=== PATIENT | female | born 2000 | race African-American/Black ===

== ENCOUNTER 2019-05-31 20:06 | Emergency (ER) | payer OTHER ==
[2019-05-31 20:26] LABS: ABS Basophils 0.1 10^3/ul (0-0.2); ABS Eosinophils 0.1 10^3/ul (0-0.6); ABS Lymphocytes 2.8 10^3/ul (1.0-4.8); ABS Monocytes 0.5 10^3/ul (0-0.8); ABS Neutrophils 5.3 10^3/ul (1.5-7.7); Eosinophil % 1.3 %; Hematocrit 33 % (35-47); Hemoglobin 11.3 g/dL (12.0-16.0); Mean Corpuscular HGB Conc 34 g/dL (31-36); Mean Corpuscular Hemoglobin 26 pg (27-31); Mean Corpuscular Volume 77 fL (80-97); Mean Platelet Volume 6.8 fL (7.4-10.4); Platelet Count 433 10^3/uL (150-450); Red Blood Count 4.33 10^6 /uL (3.70-4.87); Red Cell Distribution Width 15 % (10-15); White Blood Count 8.9 10^3/uL (3.5-10.8)
[2019-05-31 20:35] LABS: INR 1.21 (0.82-1.09)
[2019-05-31 20:43] LABS: Albumin 4.1 g/dL (3.2-5.2); Albumin/Globulin Ratio 1.2 (1-3); BUN/Creatinine Ratio 11.4 (8-20); Calcium 9.3 mg/dL (8.6-10.3); EGFR African American 112.3 (>60); EGFR Non-African American 92.8 (>60); Globulin 3.3 g/dL (2-4); Potassium 3.3 mmol/L (3.5-5.0); Total Bilirubin 0.3 mg/dL (0.2-1.0); Total Protein 7.4 g/dL (6.4-8.9)
--- NOTE | 2019-05-31 23:05 | ED ---
HPI Chest Pain - HPI Summary HPI Summary: 18-year-old female without significant past medical history presents to the emergency department today complaining of 2 out of 10 epigastric chest pain which she describes as"shock" which lasts for approximately 3 minutes which comes on randomly for which she has been experiencing for years as well as a lump on her breast. Patient denies chest pain with exertion or associated symptoms such as lightheadedness, nausea, shortness of breath, abdominal pain, arm pain, jaw pain. Patient denies family history of myocardial infarction. Patient denies smoking or use of control, recent travel, surgery. Patient is in no acute distress at this time and resting comfortable in the stretcher. Patient denies recent alcohol use or occasional drug use. Patient denies fever, vomiting or breath, pain with urination, rash, nausea, vomiting and diarrhea. - History of Current Complaint Chief Complaint: EDChestWallPain Time Seen by Provider: 05/31/19 22:51 Hx Obtained From: Patient Onset/Duration: Started Weeks Ago, Atraumatic Timing: Constant Initial Severity: Moderate Current Severity: Moderate Pain Intensity: 6 Pain Scale Used: 0-10 Numeric Chest Pain Location: Mid Sternal Chest Pain Radiates: No Character: Other: - Shocking Aggravating Factor(s): Nothing Alleviating Factor(s): Nothing Associated Signs and Symptoms: Positive: Chest Pain - Allergy/Home Medications Allergies/Adverse Reactions: Allergies Allergy/AdvReac Type Severity Reaction Status Date / Time No Known Allergies Allergy Verified 05/31/19 20:22 PMH/Surg Hx/FS Hx/Imm Hx Infectious Disease History: No Infectious Disease History: Denies: Traveled Outside the [place] in Last 30 Days Review of Systems Constitutional: Negative Eyes: Negative ENT: Negative Positive: Chest Pain. Negative: Palpitations Respiratory: Negative Gastrointestinal: Negative Genitourinary: Negative Musculoskeletal: Negative Skin: Negative Neurological/Mental Status: Negative Psychological: Normal All Other Systems Reviewed And Are Negative: Yes Physical Exam Triage Information Reviewed: Yes Vital Signs On Initial Exam: Initial Vitals Temp Pulse Resp BP Pulse Ox 99.2 F 88 16 151/95 100 05/31/19 20:15 05/31/19 20:15 05/31/19 20:15 05/31/19 20:15 05/31/19 20:15 Vital Signs Reviewed: Yes Appearance: Positive: Well-Appearing, No Pain Distress, Well-Nourished, Obese Skin: Positive: Warm, Skin Color Reflects Adequate Perfusion Eyes: Positive: EOMI, CRISTINA ENT: Positive: Hearing grossly normal Respiratory/Lung Sounds: Positive: Clear to Auscultation, Breath Sounds Present Cardiovascular: Positive: RRR, S1, S2 Abdomen Description: Positive: Nontender, Soft Bowel Sounds: Positive: Present Musculoskeletal: Positive: Strength/ROM Intact Neurological: Positive: Sensory/Motor Intact, Alert, Oriented to Person Place, Time, Normal Gait, Facial Symmetry, Speech Normal Psychiatric: Positive: Normal, Affect/Mood Appropriate AVPU Assessment: Alert Procedures - Sedation Patient Received Moderate/Deep Sedation with Procedure: No Diagnostics - Vital Signs Vital Signs Temp Pulse Resp BP Pulse Ox 05/31/19 22:10 98.7 F 65 16 149/95 100 05/31/19 20:15 99.2 F 88 16 151/95 100 - Laboratory Lab Results: Lab Results 05/31/19 05/31/19 05/31/19 Range/Units 20:18 20:18 20:18 WBC 8.9 (3.5-10.8) 10^3/uL RBC 4.33 (3.70-4.87) 10^6 /uL Hgb 11.3 L (12.0-16.0) g/dL Hct 33 L (35-47) % MCV 77 L (80-97) fL MCH 26 L (27-31) pg MCHC 34 (31-36) g/dL RDW 15 (10-15) % Plt Count 433 (150-450) 10^3/uL MPV 6.8 L (7.4-10.4) fL Neut % (Auto) 60.0 % Lymph % (Auto) 32.0 % Reynolds % (Auto) 6.1 % Eos % (Auto) 1.3 % Baso % (Auto) 0.6 % Absolute Neuts (auto) 5.3 (1.5-7.7) 10^3/ul Absolute Lymphs (auto) 2.8 (1.0-4.8) 10^3/ul Absolute Monos (auto) 0.5 (0-0.8) 10^3/ul Absolute Eos (auto) 0.1 (0-0.6) 10^3/ul Absolute Basos (auto) 0.1 (0-0.2) 10^3/ul Absolute Nucleated RBC 0.0 10^3/ul Nucleated RBC % 0.0 INR (Anticoag Therapy) 1.21 H (0.82-1.09) Sodium 137 (135-145) mmol/L Potassium 3.3 L (3.5-5.0) mmol/L Chloride 105 (101-111) mmol/L Carbon Dioxide 26 (22-32) mmol/L Anion Gap 6 (2-11) mmol/L BUN 9 (6-24) mg/dL Creatinine 0.79 (0.51-0.95) mg/dL Est GFR ( Amer) 112.3 (>60) Est GFR (Non-Af Amer) 92.8 (>60) BUN/Creatinine Ratio 11.4 (8-20) Glucose 82 (70-100) mg/dL Calcium 9.3 (8.6-10.3) mg/dL Total Bilirubin 0.30 (0.2-1.0) mg/dL AST 12 L (13-39) U/L ALT 10 (7-52) U/L Alkaline Phosphatase 77 (34-104) U/L Troponin I 0.00 (<0.03) ng/mL Total Protein 7.4 (6.4-8.9) g/dL Albumin 4.1 (3.2-5.2) g/dL Globulin 3.3 (2-4) g/dL Albumin/Globulin Ratio 1.2 (1-3) Result Diagrams: 05/31/19 20:18 05/31/19 20:18 Lab Statement: Any lab studies that have been ordered have been reviewed, and results considered in the medical decision making process. Chest Pain Course/Dx - Course Course Of Treatment: Patient was evaluated in the emergency department today for chest pain. Vitals noted and stable. EKG was done promptly which shows no evidence of STEMI. Normal sinus rhythm at a rate of 89 bpm. Normal axis, WI, QT interval. No T-wave inversions or signs of ischemia. Laboratory studies returned showing no significant abnormality with no leukocytosis, anemia, or electrolyte disturbance. Initial troponin 0.00. Serial troponins seemed unnecessary as patient has been symptomatic for years. Chest xray negative for pathology. PERC negative. HEART score: 1. It appeared patient was not experiencing any significant heart pathology at this time did not require intervention. Patient's breast mass was consistent with benign cyst. Patient discharged with outpatient follow-up. - Chest Pain Differential Diagnosis/HQI/PQRI: Acute [place], Angina, CHF, Chest Wall, Lower Respiratory Infection, Pulmonary Embolism - Diagnoses Provider Diagnoses: Chest pain, Breast mass in female Discharge ED - Sign-Out/Discharge Documenting (check all that apply): Patient Departure - Discharge Plan Condition: Stable Disposition: HOME Patient Education Materials: Chest Pain (ED), Breast Mass (ED) Referrals: Jj Cárdenas MD [Medical Doctor] - 5 Days No Primary Care Phys,NOPCP [Primary Care Provider] - Additional Instructions: You were seen in the emergency department today due to chest pain. Cardiac workup was done today including an EKG and blood work which found no evidence of acute pathology requiring intervention at this time. Although I am uncertain what is causing your symptoms cardiac origin cannot be ruled out. Please follow- up with your primary care provider or real estate legal secretary in 3 days for further evaluation and management. Please return to this emergency Department immediately if you develop any new or worsening symptoms. Please follow-up with your CASE OPERATOR for further investigation of the mass on your breast although this is considered benign. - Billing Disposition and Condition Condition: STABLE Disposition: Home
[2019-05-31 23:53] VITALS: BP 111/68
== END 2019-05-31 23:51 | disposition home or self-care (01) ==
LOC: ED 20:06
DX: R07.89 Other chest pain (principal); N63.0 Unspecified lump in unspecified breast
CPT/HCPCS: 36415; 71046; 80053; 84484; 85025; 85610; 93005; 99282